=== PATIENT | male | born 1985 | race Caucasian/White ===

== ENCOUNTER 2016-12-25 11:52 | Emergency (ER) | payer OTHER | END 2016-12-25 13:47 | disposition home or self-care (01) | LOC: FER 11:52 | DX: M70.821 Other soft tissue disorders related to use, overuse and pressure, right upper arm (principal); M70.831 Other soft tissue disorders related to use, overuse and pressure, right forearm; F17.210 Nicotine dependence, cigarettes, uncomplicated; X50.3XXA Overexertion from repetitive movements, initial encounter; Y99.0 Civilian activity done for income or pay | CPT/HCPCS: 73080; J1100; J1885 ==

== ENCOUNTER 2020-07-06 14:50 | Emergency (ER) | payer OTHER ==
[2020-07-06] MEDS ORDERED: KEFLEX500 MG PO (16:44)
== END 2020-07-06 17:04 | disposition home or self-care (01) ==
LOC: FER 14:50
DX: S61.012A Laceration without foreign body of left thumb without damage to nail, initial encounter (principal); F17.210 Nicotine dependence, cigarettes, uncomplicated; Z23 Encounter for immunization; W45.8XXA Other foreign body or object entering through skin, initial encounter; Y92.009 Unspecified place in unspecified non-institutional (private) residence as the place of occurrence of the external cause
CPT/HCPCS: 90471; 90715

== ENCOUNTER 2020-12-07 10:29 | Emergency (ER) | payer OTHER ==
[~2020-12-07 10:29] MED LIST: KEFLEX500 MG PO
[2020-12-07] MEDS ORDERED: CYCLOBENZAPRINE10 MG PO (11:14)
[2020-12-07] MEDS ORDERED: DICLOFENAC SODI75 MG PO (11:14)
== END 2020-12-07 11:30 | disposition home or self-care (01) ==
LOC: FER 10:29
DX: M62.830 Muscle spasm of back (principal); F17.200 Nicotine dependence, unspecified, uncomplicated
CPT/HCPCS: 96372; 99283; J1040; J1885

== ENCOUNTER 2021-11-08 08:58 | Emergency (ER) | payer OTHER ==
[~2021-11-08 08:58] MED LIST changes: +CYCLOBENZAPRINE10 MG PO; +DICLOFENAC SODI75 MG PO
[2021-11-08] MEDS ORDERED: NAPROXEN500 MG PO (10:13)
== END 2021-11-08 10:50 | disposition home or self-care (01) ==
LOC: FER 08:58
DX: S52.601A Unspecified fracture of lower end of right ulna, initial encounter for closed fracture (principal); F17.200 Nicotine dependence, unspecified, uncomplicated; W22.09XA Striking against other stationary object, initial encounter; Y92.89 Other specified places as the place of occurrence of the external cause; Y99.0 Civilian activity done for income or pay; Z28.310 Unvaccinated for COVID-19
CPT/HCPCS: 73090; 96372; J1885

== ENCOUNTER 2021-12-24 11:44 | Emergency (ER) | payer OTHER ==
[~2021-12-24 11:44] MED LIST changes: +NAPROXEN500 MG PO
== END 2021-12-24 14:15 | disposition left against medical advice (07) ==
LOC: FER 11:44
DX: R51.9 Headache, unspecified (principal); F17.210 Nicotine dependence, cigarettes, uncomplicated; Z53.29 Procedure and treatment not carried out because of patient's decision for other reasons; Z28.310 Unvaccinated for COVID-19
CPT/HCPCS: 99283

== ENCOUNTER 2022-02-03 10:31 | Emergency (ER) | payer OTHER ==
[2022-02-03 11:05] LABS: BASOPHIL 0.7 % (0-2); EOSINOPHIL 2.5 % (0-5); HCT 43.2 % (42.0-52.0); HGB 14.8 g/dl (13.2-18.0); MCH 32.7 pg (25.0-31.0); MCHC 34.3 g/dL (32.0-36.0); MCV 95.4 fL (78.0-100.0); MONOCYTE 8.4 % (0-12); MPV 9.1 fL (6.0-9.5); NEUTROPHIL 63.1 % (41-80); NRBC 0; PLT 260 K/uL (150-400); RBC 4.53 M/uL (4.70-6.00); RDW 12.3 % (11.5-14.0); WBC 7.3 K/uL (4.0-10.5)
[2022-02-03 11:13] LABS: INR 0.87 (0.9-1.2); PROTHROMBIN TIME 11.6 SECONDS (11.9-13.9); PTT 25.9 SECONDS (24.9-34.6)
[2022-02-03 11:59] LABS: ALBUMIN 3.7 g/dL (3.4-5.0); BILIRUBIN - TOTAL 0.3 mg/dL (0.2-1.0); BUN/CREAT RATIO (CALC) 12.9 RATIO; CREATININE 0.93 mg/dL (0.67-1.17); GLOBULIN (CALCULATION) 3.8 g/dL; POTASSIUM 3.9 mmol/L (3.5-5.1); TOTAL PROTEIN 7.5 g/dL (6.4-8.2)
[2022-02-03] MEDS ORDERED: BENTYL10 MG PO (14:00)
[2022-02-03] MEDS ORDERED: PROTONIX 40MG T40 MG PO (14:00)
[2022-02-03] MEDS ORDERED: CARAFATE S500 MG/TSP PO (14:00)
== END 2022-02-03 14:26 | disposition home or self-care (01) ==
LOC: FER 10:31
PROVIDERS: Emergency Medicine
DX: R07.89 Other chest pain (principal); F17.210 Nicotine dependence, cigarettes, uncomplicated; Z28.310 Unvaccinated for COVID-19
CPT/HCPCS: 36415; 71045; 80053; 84484; 85025; 85610; 85730; 93005; J1885

== ENCOUNTER 2022-02-26 11:35 | Emergency (ER) | payer SELFPAY ==
[~2022-02-26 11:35] MED LIST changes: +BENTYL10 MG PO; +CARAFATE S500 MG/TSP PO; +PROTONIX 40MG T40 MG PO
[2022-02-26] MEDS ORDERED: NORCO 5-325 TA1 EACH PO (19:31)
== END 2022-02-26 14:02 | disposition home or self-care (01) ==
LOC: FER 11:35
DX: S62.314A Displaced fracture of base of fourth metacarpal bone, right hand, initial encounter for closed fracture (principal); S62.316A Displaced fracture of base of fifth metacarpal bone, right hand, initial encounter for closed fracture; F17.210 Nicotine dependence, cigarettes, uncomplicated; W22.8XXA Striking against or struck by other objects, initial encounter; Y92.59 Other trade areas as the place of occurrence of the external cause; Z28.310 Unvaccinated for COVID-19
CPT/HCPCS: 73090; 73110; 73130